=== PATIENT | female | born 1995 | race Caucasian/White ===

== ENCOUNTER 2023-09-01 13:51 | Day surgery (SDC) | payer OTHER, SELFPAY ==
[2023-09-01] VITALS (22 sets, daily range): BP systolic 103–129; BP diastolic 62–88; PULSE 55–68; RESP 18–26; TEMP 37–37.3; O2SAT 97–100
--- NOTE | 2023-09-01 14:25 | CRLHL7_ITS ---
For Patients: As a result of the Century Cures Act, medical imaging exams and procedure reports are released immediately into your electronic medical record. You may view this report before your referring provider. If you have questions, please contact your health care provider. INDICATION: Chest pain COMPARISON: None TECHNIQUE: Single-view study FINDINGS: TUBES AND LINES: None. HEART AND MEDIASTINUM: The heart size is normal. The mediastinal contour appears normal for patient age. LUNGS AND PLEURAL SPACES: The lungs appear normal.The pleural spaces are unremarkable. OSSEOUS STRUCTURES: Significant appearing scoliosis. The scoliosis is not fully or formally studied on this examination. IMPRESSION: No evidence of active pulmonary disease. Significant appearing scoliosis incidentally noted. Dictated by Josiah Ny MD @ 09/01/2023 3:42:52 PM (Electronically Signed)
--- NOTE | 2023-09-01 14:25 | CRLHL7_ITS ---
For Patients: As a result of the Century Cures Act, medical imaging exams and procedure reports are released immediately into your electronic medical record. You may view this report before your referring provider. If you have questions, please contact your health care provider. INDICATION: Right upper quadrant abdomen pain TECHNIQUE: Ultrasound abdomen limited. Sonographic images of the right upper quadrant were obtained using gambino-scale and color Doppler images. COMPARISON: None FINDINGS: Liver: Normal in size and echotexture. No masses. No intrahepatic biliary dilatation. Gallbladder: Distended with gallbladder sludge and multiple gallstones. Mild gallbladder wall thickening. Stone noted at the gallbladder neck. Trace pericholecystic fluid. Common bile duct: 5 mm. Pancreas: Partially obscured by bowel gas without discrete lesion. Right kidney: Normal in size. Normal echotexture and cortex. No masses, stones, or hydronephrosis. Vasculature: Proximal abdominal aorta and IVC are normal. IMPRESSION: 1. Cholelithiasis, gallbladder sludge, gallbladder wall thickening, trace pericholecystic fluid and stone noted at the gallbladder neck. Appearance is suspicious for cholecystitis. 2. Normal diameter common duct. Dictated by Torsten Downs MD @ 09/01/2023 3:22:46 PM (Electronically Signed)
[2023-09-01] MEDS: MAG HYDROX/ALUMINUM HYD/SIMETH 30 ML ORAL.SUSP PO (14:37)
[2023-09-01 15:19] LABS: Chloride* 105 mmol/L (96-114)
[2023-09-01 15:20] LABS: Albumin* 4.2 g/dL (3.3-5.0); Sodium* 131 mmol/L (135-149)
[2023-09-01 15:21] LABS: D Dimer Quantitative* 0.44 ug/ml (0.00-0.50); Potassium* 3.8 mmol/L (3.6-5.1)
[2023-09-01 15:23] LABS: Alkaline Phosphatase* 66 U/L (40-150); Amylase* 111 U/L (18-89); Anion Gap 0 mEq/L (7-15); Aspartate Amino Transferase* 21 U/L (12-35); Bilirubin Total* 0.3 mg/dL (0.1-1.5); Blood Urea Nitrogen* 13 mg/dL (5-24); Carbon Dioxide* 26 mmol/L (20-32); Creatinine* 0.5 mg/dL (0.5-1.5); Estimated Glomerular Filt Rate 133 ml/min
[2023-09-01 15:24] LABS: Alanine Aminotransferase* 58 U/L (4-35); Calcium* 8.8 mg/dL (8.4-10.6); Glucose* 110 mg/dL (60-115)
[2023-09-01] MEDS: KETOROLAC 30 MG/ML inj IVP (15:38)
[2023-09-01] MEDS: 0.9 % SODIUM CHLORIDE 1000 ml 1,000 ML IV (15:38)
[2023-09-01 15:48] LABS: Troponin I* < 0.01 ng/mL (0.01-0.04)
--- NOTE | 2023-09-01 15:48 | ED.CHESTPAIN ---
HPI - Chest Pain General Chief Complaint: Chest Pain <Pete Fletcher MD - Last Filed: 09/01/23 15:50> Stated Complaint: Chest pain, short of breath <Pete Fletcher MD - Last Filed: 09/01/23 15:50> Time Seen by Provider: 09/01/23 14:14 <Pete Fletcher MD - Last Filed: 09/01/23 15:50> History of Present Illness HPI narrative: Patient is a 28-year-old woman who is in overall good health who presents with 8-10 hours of epigastric and right upper quadrant pain. She states that she has had similar episodes in the past but this was more severe. She has profound nausea as well as extreme pain that radiates through to her back. Pain is dull. She has had no fevers no chills no night sweats no dysuria no cough no shortness of breath. Her last meal was approximately 4 hours ago. <Pete Fletcher MD - Last Filed: 09/01/23 15:50> Related Data Home Medications: Home Medications Medication Instructions Recorded Confirmed escitalopram oxalate 10 mg PO .QD 09/01/23 09/02/23 hydroxizine 25 mg PO TID PRN 09/01/23 09/02/23 Previous Rx's Medication Instructions Recorded hydrocodone 5 mg-acetaminophen 325 1 - 2 tab PO Q6H PRN Pain #20 tabs 09/02/23 mg tablet hydrocodone 5 mg-acetaminophen 325 1 - 2 tab PO Q6H PRN Pain #25 tabs 09/02/23 mg tablet <Pete Fletcher MD - Last Filed: 09/01/23 15:50> Allergies/Adverse Reactions: Allergies Allergy/AdvReac Type Severity Reaction Status Date / Time No Known Drug Allergies Allergy Verified 09/01/23 13:58 <Pete Fletcher MD - Last Filed: 09/01/23 15:50> Review of Systems Status of ROS Reports: 10 or more systems reviewed and unremarkable except as noted in History and below <Pete Fletcher MD - Last Filed: 09/01/23 15:50> [facility] Medical History: Medical History (Updated 09/01/23 @ 17:48 by Layla Garcia MD) Scoliosis ?M41.9 - Scoliosis, unspecified (ICD-10) Depression ?F32.A - Depression, unspecified (ICD-10) Anxiety ?F41.9 - Anxiety disorder, unspecified (ICD-10) <Pete Fletcher MD - Last Filed: 09/01/23 15:50> Surgical History: Surgical History (Updated 09/02/23 @ 21:51 by Layla Garcia MD) S/P laparoscopic cholecystectomy ?Z90.49 - Acquired absence of other specified parts of digestive tract (ICD-10) S/P tonsillectomy ?Z90.89 - Acquired absence of other organs (ICD-10) <Pete Fletcher MD - Last Filed: 09/01/23 15:50> Social History: Social History (Updated 09/01/23 @ 17:48 by Layla Garcia MD) Narrative: She does not drink alcohol. She does smoke medical marijuana. She vapes occasionally. She is not currently working. She lives in [place] with her daughter. Smoking Status: Current some day smoker Do you use any of these nicotine containing products: Vaping Products How often do you have a drink containing alcohol: never How often do you have six or more drinks on one occasion: Never AUDIT-C Alcohol total score: 0 Non-prescribed substance use: marijuana (any form) Non-prescribed substance use details: medical marijuana smokes for 2 years service: No <Pete Fletcher MD - Last Filed: 09/01/23 15:50> Exam Narrative Exam Narrative: EXAM GENERAL: Patient is writhing in pain holding her abdomen. EYES: No scleral icterus. LYMPH: No supraclavicular or cervical lymphadenopathy. SKIN: Visible skin seen during exam normal or with benign process only. EXT: No dependent lower extremity pedal edema. HEART: Regular rate and rhythm with no murmurs, rubs, or gallops. LUNGS: Clear to auscultation bilaterally with no crackles or wheezes. ABD: Tender to palpation the right upper quadrant hypoactive bowel sounds abdomen is scaphoid. PSYCH: Good eye contact, speech is not pressured. <Pete Fletcher MD - Last Filed: 09/01/23 15:50> Const Vital Signs, click to edit/add: Vital Signs - 24 hr 09/02/23 10:30 09/02/23 10:35 09/02/23 10:40 Temperature 97.9 F Pulse Rate 86 79 62 Pulse Rate [Right Pulse Oximeter] Respiratory Rate 18 16 18 Blood Pressure 117/79 121/77 116/76 Blood Pressure [Left Arm] Pulse Oximetry 99 99 99 Oxygen Delivery Method Room Air Room Air Room Air 09/02/23 10:45 09/02/23 10:50 09/02/23 10:55 Temperature 97.7 F Pulse Rate 61 61 58 L Pulse Rate [Right Pulse Oximeter] Respiratory Rate 16 18 14 Blood Pressure 115/78 112/77 114/79 Blood Pressure [Left Arm] Pulse Oximetry 98 98 98 Oxygen Delivery Method Room Air Room Air Room Air 09/02/23 11:00 09/02/23 11:05 09/02/23 11:15 Temperature 97.7 F 97.8 F Pulse Rate 58 L 59 L 58 L Pulse Rate [Right Pulse Oximeter] Respiratory Rate 16 14 14 Blood Pressure 119/77 118/79 114/78 Blood Pressure [Left Arm] Pulse Oximetry 98 98 98 Oxygen Delivery Method Room Air Room Air Room Air 09/02/23 11:30 09/02/23 11:45 09/02/23 12:00 Temperature Pulse Rate 64 62 68 Pulse Rate [Right Pulse Oximeter] Respiratory Rate 16 16 16 Blood Pressure 119/82 114/78 112/66 Blood Pressure [Left Arm] Pulse Oximetry 97 97 98 Oxygen Delivery Method Room Air Room Air Room Air 09/02/23 12:15 09/02/23 12:45 09/02/23 13:15 Temperature 99 F Pulse Rate 66 Pulse Rate [Right Pulse Oximeter] 80 78 Respiratory Rate 16 18 18 Blood Pressure 109/74 Blood Pressure [Left Arm] 103/67 111/79 Pulse Oximetry 97 100 Oxygen Delivery Method Room Air Room Air 09/02/23 14:15 09/02/23 15:15 09/02/23 16:15 Temperature 98.3 F Pulse Rate Pulse Rate [Right Pulse Oximeter] 84 78 82 Respiratory Rate 18 18 18 Blood Pressure Blood Pressure [Left Arm] 112/72 110/76 118/72 Pulse Oximetry Oxygen Delivery Method 09/02/23 17:15 09/02/23 19:16 09/02/23 19:16 Temperature 97.9 F 97.9 F Pulse Rate Pulse Rate [Right Pulse Oximeter] 76 72 72 Respiratory Rate 18 16 16 Blood Pressure Blood Pressure [Left Arm] 113/76 114/76 114/76 Pulse Oximetry 98 98 Oxygen Delivery Method Room Air Room Air 09/02/23 23:50 09/03/23 00:00 09/03/23 04:06 Temperature 98 F 97.8 F Pulse Rate Pulse Rate [Right Pulse Oximeter] 76 76 63 Respiratory Rate 16 16 16 Blood Pressure Blood Pressure [Left Arm] 117/72 102/63 Pulse Oximetry 97 98 Oxygen Delivery Method Room Air Room Air 09/03/23 04:57 Temperature Pulse Rate Pulse Rate [Right Pulse Oximeter] 63 Respiratory Rate 16 Blood Pressure Blood Pressure [Left Arm] Pulse Oximetry Oxygen Delivery Method <Pete Fletcher MD - Last Filed: 09/01/23 15:50> Vital Signs - 24 hr 09/02/23 10:30 09/02/23 10:35 09/02/23 10:40 Temperature 97.9 F Pulse Rate 86 79 62 Pulse Rate [Right Pulse Oximeter] Respiratory Rate 18 16 18 Blood Pressure 117/79 121/77 116/76 Blood Pressure [Left Arm] Pulse Oximetry 99 99 99 Oxygen Delivery Method Room Air Room Air Room Air 09/02/23 10:45 09/02/23 10:50 09/02/23 10:55 Temperature 97.7 F Pulse Rate 61 61 58 L Pulse Rate [Right Pulse Oximeter] Respiratory Rate 16 18 14 Blood Pressure 115/78 112/77 114/79 Blood Pressure [Left Arm] Pulse Oximetry 98 98 98 Oxygen Delivery Method Room Air Room Air Room Air 09/02/23 11:00 09/02/23 11:05 09/02/23 11:15 Temperature 97.7 F 97.8 F Pulse Rate 58 L 59 L 58 L Pulse Rate [Right Pulse Oximeter] Respiratory Rate 16 14 14 Blood Pressure 119/77 118/79 114/78 Blood Pressure [Left Arm] Pulse Oximetry 98 98 98 Oxygen Delivery Method Room Air Room Air Room Air 09/02/23 11:30 09/02/23 11:45 09/02/23 12:00 Temperature Pulse Rate 64 62 68 Pulse Rate [Right Pulse Oximeter] Respiratory Rate 16 16 16 Blood Pressure 119/82 114/78 112/66 Blood Pressure [Left Arm] Pulse Oximetry 97 97 98 Oxygen Delivery Method Room Air Room Air Room Air 09/02/23 12:15 09/02/23 12:45 09/02/23 13:15 Temperature 99 F Pulse Rate 66 Pulse Rate [Right Pulse Oximeter] 80 78 Respiratory Rate 16 18 18 Blood Pressure 109/74 Blood Pressure [Left Arm] 103/67 111/79 Pulse Oximetry 97 100 Oxygen Delivery Method Room Air Room Air 09/02/23 14:15 09/02/23 15:15 09/02/23 16:15 Temperature 98.3 F Pulse Rate Pulse Rate [Right Pulse Oximeter] 84 78 82 Respiratory Rate 18 18 18 Blood Pressure Blood Pressure [Left Arm] 112/72 110/76 118/72 Pulse Oximetry Oxygen Delivery Method 09/02/23 17:15 09/02/23 19:16 09/02/23 19:16 Temperature 97.9 F 97.9 F Pulse Rate Pulse Rate [Right Pulse Oximeter] 76 72 72 Respiratory Rate 18 16 16 Blood Pressure Blood Pressure [Left Arm] 113/76 114/76 114/76 Pulse Oximetry 98 98 Oxygen Delivery Method Room Air Room Air 09/02/23 23:50 09/03/23 00:00 09/03/23 04:06 Temperature 98 F 97.8 F Pulse Rate Pulse Rate [Right Pulse Oximeter] 76 76 63 Respiratory Rate 16 16 16 Blood Pressure Blood Pressure [Left Arm] 117/72 102/63 Pulse Oximetry 97 98 Oxygen Delivery Method Room Air Room Air 09/03/23 04:57 Temperature Pulse Rate Pulse Rate [Right Pulse Oximeter] 63 Respiratory Rate 16 Blood Pressure Blood Pressure [Left Arm] Pulse Oximetry Oxygen Delivery Method <Jonathan Hooper DO - Last Filed: 09/03/23 08:04> Course Course ED Course: Patient seen examined. Suspect she has cholecystitis. Ultrasound the gallbladder is significant for acute cholecystitis. Laboratory studies are pending. Preliminary contact has been made with the General surgery. <Pete Fletcher MD - Last Filed: 09/01/23 15:50> Vital Signs Vital signs: Initial Vital Signs Temperature 98.6 F 09/01/23 13:54 Temperature Source Temporal Artery Scan 09/01/23 13:54 Pulse Rate 65 09/01/23 13:54 Respiratory Rate 18 09/01/23 13:54 Blood Pressure 129/74 09/01/23 13:54 Blood Pressure Mean 92 09/01/23 13:54 Blood Pressure Position Sitting 09/01/23 13:54 Pulse Oximetry 99 09/01/23 13:54 Oxygen Delivery Method Room Air 09/01/23 13:54 Vital Signs Temperature 98.6 F 09/01/23 13:54 Pulse Rate 65 09/01/23 13:54 Respiratory Rate 18 09/01/23 13:54 Blood Pressure 129/74 09/01/23 13:54 Pulse Oximetry 99 09/01/23 13:54 Oxygen Delivery Method Room Air 09/01/23 13:54 Temperature 97.8 F 09/03/23 04:06 Pulse Rate 63 09/03/23 04:57 Respiratory Rate 16 09/03/23 04:57 Blood Pressure 102/63 09/03/23 04:06 Pulse Oximetry 98 09/03/23 04:06 Oxygen Delivery Method Room Air 09/03/23 04:06 <Pete Fletcher MD - Last Filed: 09/01/23 15:50> Initial Vital Signs Temperature 98.6 F 09/01/23 13:54 Temperature Source Temporal Artery Scan 09/01/23 13:54 Pulse Rate 65 09/01/23 13:54 Respiratory Rate 18 09/01/23 13:54 Blood Pressure 129/74 09/01/23 13:54 Blood Pressure Mean 92 09/01/23 13:54 Blood Pressure Position Sitting 09/01/23 13:54 Pulse Oximetry 99 09/01/23 13:54 Oxygen Delivery Method Room Air 09/01/23 13:54 Vital Signs Temperature 98.6 F 09/01/23 13:54 Pulse Rate 65 09/01/23 13:54 Respiratory Rate 18 09/01/23 13:54 Blood Pressure 129/74 09/01/23 13:54 Pulse Oximetry 99 09/01/23 13:54 Oxygen Delivery Method Room Air 09/01/23 13:54 Temperature 97.8 F 09/03/23 04:06 Pulse Rate 63 09/03/23 04:57 Respiratory Rate 16 09/03/23 04:57 Blood Pressure 102/63 09/03/23 04:06 Pulse Oximetry 98 09/03/23 04:06 Oxygen Delivery Method Room Air 09/03/23 04:06 <Jonathan Hopoer DO - Last Filed: 09/03/23 08:04> Medications Administered Medications: Generic Name Dose Route Start Last Admin Trade Name Brandon PRN Reason Stop Dose Admin Hydrocodone Bitart/Acetaminophen 1 - 2 tab 09/02/23 10:20 09/03/23 04:39 Hydrocodone-Acetamin 5-325 Mg 1 Tab PO 1 tab Q4H PRN Administration Pain Hydromorphone HCl 0.5 mg 09/02/23 07:50 09/02/23 10:35 Hydromorphone 0.5 Mg/0.5 Ml Inj IVP 0.5 mg Q10M PRN Administration Pain Sodium Chloride 1,000 mls @ 100 mls/hr 09/01/23 19:28 09/02/23 03:01 0.9 % Sodium Chloride 1000 Ml IV 100 mls/hr .Q10H CATHY Administration Piperacillin Sod/Tazobactam 100 mls @ 100 mls/hr 09/02/23 22:00 09/03/23 05:21 Sod 3.375 gm/ Sodium Chloride IVPB Infused Q6H CATHY Infusion Menthol 0 applic 09/02/23 16:43 09/03/23 04:41 Menthol 57 Gm Gel TOPICAL 1 applic TID PRN Administration Simethicone 160 mg 09/02/23 16:39 09/03/23 04:37 Simethicone 80 Mg Tab.Chew PO 160 mg Q4H PRN Administration Discontinued Medications Generic Name Dose Route Start Last Admin Trade Name Brandon PRN Reason Stop Dose Admin Acetaminophen 650 mg 09/02/23 10:20 09/02/23 13:05 Acetaminophen 325 Mg Tablet PO 09/02/23 10:21 650 mg ONCE ONE Administration Bupivacaine HCl 9 ml 09/02/23 09:10 09/02/23 09:10 Bupivacaine 0.25% 30 Ml INJECTION 09/02/23 09:11 9 ml ONCE ONE Administration Cyclobenzaprine HCl 10 mg 09/01/23 19:28 09/01/23 20:19 Cyclobenzaprine Hcl 10 Mg Tablet PO 09/01/23 19:29 Not Given BEDTIME ONE Hydromorphone HCl 0.1 - 0.5 mg 09/01/23 19:28 09/02/23 12:57 Hydromorphone 0.5 Mg/0.5 Ml Inj IVP 0.3 mg Q2H PRN Administration Pain Sodium Chloride 1,000 mls @ 1,000 mls/hr 09/01/23 15:18 09/01/23 16:39 0.9 % Sodium Chloride 1000 Ml IV 09/01/23 16:17 Infused .Q1H CATHY Infusion Piperacillin Sod/Tazobactam 100 mls @ 100 mls/hr 09/01/23 19:28 09/02/23 20:06 Sod 3.375 gm/ Sodium Chloride IVPB Infused Q6H CATHY Infusion Lactated Ringer's 1,000 mls @ 100 mls/hr 09/02/23 07:40 09/02/23 20:06 Lactated Ringers 1000 Ml IV Infused .Q10H CATHY Infusion Ketorolac Tromethamine 30 mg 09/01/23 15:18 09/01/23 15:38 Ketorolac 30 Mg/Ml Inj IVP 09/01/23 15:19 30 mg ONCE ONE Administration Ketorolac Tromethamine 15 mg 09/01/23 19:14 09/01/23 19:24 Ketorolac 15 Mg/Ml Inj IVP 09/01/23 19:15 15 mg ONCE ONE Administration Lidocaine/Aluminum/Magnesium/Simeth 30 ml 09/01/23 15:46 09/01/23 14:37 Mag Hydrox/Aluminum Hyd/Simeth 30 Ml Oral.Susp PO 09/01/23 15:47 30 ml ONCE ONE Administration Morphine Sulfate 4 mg 09/01/23 18:19 09/01/23 18:32 Morphine 4 Mg/Ml Inj IVP 09/01/23 18:20 4 mg ONCE ONE Administration Morphine Sulfate 2 mg 09/01/23 19:14 09/01/23 19:24 Morphine 2 Mg/Ml Inj IVP 09/01/23 19:15 2 mg ONCE ONE Administration Morphine Sulfate 4 mg 09/02/23 01:28 09/02/23 01:37 Morphine 4 Mg/Ml Inj IVP 09/02/23 01:29 4 mg ONCE ONE Administration Morphine Sulfate 4 mg 09/02/23 01:28 09/02/23 07:04 Morphine 2 Mg/Ml Inj IVP 4 mg Q2H PRN Administration Piperacillin Sod/Tazobactam Sod 3.375 gm 09/02/23 07:42 09/02/23 08:55 Piperacillin/Tazobactam 3.375 Gm Inj IVPB 09/02/23 07:43 3.375 gm ONCE ONE Administration <Pete Fletcher MD - Last Filed: 09/01/23 15:50> Generic Name Dose Route Start Last Admin Trade Name Brandon PRN Reason Stop Dose Admin Hydrocodone Bitart/Acetaminophen 1 - 2 tab 09/02/23 10:20 09/03/23 04:39 Hydrocodone-Acetamin 5-325 Mg 1 Tab PO 1 tab Q4H PRN Administration Pain Hydromorphone HCl 0.5 mg 09/02/23 07:50 09/02/23 10:35 Hydromorphone 0.5 Mg/0.5 Ml Inj IVP 0.5 mg Q10M PRN Administration Pain Sodium Chloride 1,000 mls @ 100 mls/hr 09/01/23 19:28 09/02/23 03:01 0.9 % Sodium Chloride 1000 Ml IV 100 mls/hr .Q10H CATHY Administration Piperacillin Sod/Tazobactam 100 mls @ 100 mls/hr 09/02/23 22:00 09/03/23 05:21 Sod 3.375 gm/ Sodium Chloride IVPB Infused Q6H CATHY Infusion Menthol 0 applic 09/02/23 16:43 09/03/23 04:41 Menthol 57 Gm Gel TOPICAL 1 applic TID PRN Administration Simethicone 160 mg 09/02/23 16:39 09/03/23 04:37 Simethicone 80 Mg Tab.Chew PO 160 mg Q4H PRN Administration Discontinued Medications Generic Name Dose Route Start Last Admin Trade Name Brandon PRN Reason Stop Dose Admin Acetaminophen 650 mg 09/02/23 10:20 09/02/23 13:05 Acetaminophen 325 Mg Tablet PO 09/02/23 10:21 650 mg ONCE ONE Administration Bupivacaine HCl 9 ml 09/02/23 09:10 09/02/23 09:10 Bupivacaine 0.25% 30 Ml INJECTION 09/02/23 09:11 9 ml ONCE ONE Administration Cyclobenzaprine HCl 10 mg 09/01/23 19:28 09/01/23 20:19 Cyclobenzaprine Hcl 10 Mg Tablet PO 09/01/23 19:29 Not Given BEDTIME ONE Hydromorphone HCl 0.1 - 0.5 mg 09/01/23 19:28 09/02/23 12:57 Hydromorphone 0.5 Mg/0.5 Ml Inj IVP 0.3 mg Q2H PRN Administration Pain Sodium Chloride 1,000 mls @ 1,000 mls/hr 09/01/23 15:18 09/01/23 16:39 0.9 % Sodium Chloride 1000 Ml IV 09/01/23 16:17 Infused .Q1H CATHY Infusion Piperacillin Sod/Tazobactam 100 mls @ 100 mls/hr 09/01/23 19:28 09/02/23 20:06 Sod 3.375 gm/ Sodium Chloride IVPB Infused Q6H CATHY Infusion Lactated Ringer's 1,000 mls @ 100 mls/hr 09/02/23 07:40 09/02/23 20:06 Lactated Ringers 1000 Ml IV Infused .Q10H CATHY Infusion Ketorolac Tromethamine 30 mg 09/01/23 15:18 09/01/23 15:38 Ketorolac 30 Mg/Ml Inj IVP 09/01/23 15:19 30 mg ONCE ONE Administration Ketorolac Tromethamine 15 mg 09/01/23 19:14 09/01/23 19:24 Ketorolac 15 Mg/Ml Inj IVP 09/01/23 19:15 15 mg ONCE ONE Administration Lidocaine/Aluminum/Magnesium/Simeth 30 ml 09/01/23 15:46 09/01/23 14:37 Mag Hydrox/Aluminum Hyd/Simeth 30 Ml Oral.Susp PO 09/01/23 15:47 30 ml ONCE ONE Administration Morphine Sulfate 4 mg 09/01/23 18:19 09/01/23 18:32 Morphine 4 Mg/Ml Inj IVP 09/01/23 18:20 4 mg ONCE ONE Administration Morphine Sulfate 2 mg 09/01/23 19:14 09/01/23 19:24 Morphine 2 Mg/Ml Inj IVP 09/01/23 19:15 2 mg ONCE ONE Administration Morphine Sulfate 4 mg 09/02/23 01:28 09/02/23 01:37 Morphine 4 Mg/Ml Inj IVP 09/02/23 01:29 4 mg ONCE ONE Administration Morphine Sulfate 4 mg 09/02/23 01:28 09/02/23 07:04 Morphine 2 Mg/Ml Inj IVP 4 mg Q2H PRN Administration Piperacillin Sod/Tazobactam Sod 3.375 gm 09/02/23 07:42 09/02/23 08:55 Piperacillin/Tazobactam 3.375 Gm Inj IVPB 09/02/23 07:43 3.375 gm ONCE ONE Administration <Jonathan Hooper DO - Last Filed: 09/03/23 08:04> MDM - Chest Pain MDM Narrative Medical decision making narrative: Patient was signed out to me pending rest of her lab work. White blood cell count came back at 12.83. I spoke to Dr. Garcia who accepted her for admission. Plan is to cholecystectomy in the morning. <Jonathan Hooper, - Last Filed: 09/03/23 08:04> Lab Data Labs: Lab Results 09/01/23 09/01/23 09/02/23 Range/Units 14:45 15:50 07:12 WBC 12.83 H 14.07 H (4.50-11.00) K/uL RBC 4.19 4.74 (4.00-5.20) m/uL Hgb 13.1 13.9 (12.0-16.0) gm/dL Hct 39.3 42.6 (33.0-51.0) % MCV 94 90 (80-100) fL MCH 31 29 (26-34) pg MCHC 33 33 (32-36) gm/dL RDW Coeff of [place] 12.9 12.7 (11.5-15.5) % Plt Count 315 306 (140-440) K/uL Neut % (Auto) 75.2 H 81.3 H (42.0-72.0) % Lymph % (Auto) 17.7 L 11.9 L (20-44) % [place] % (Auto) 5.8 6.3 (0.0-11.0) % Eos % (Auto) 1.0 0.3 (0.0-7.0) % Baso % (Auto) 0.2 0.1 (0.0-3.0) % Neut # (Auto) 9.60 H 11.40 H (1.7-7.0) K/uL Lymph # (Auto) 2.30 1.70 (0.90-2.90) K/uL [place] # (Auto) 0.70 0.90 (0.00-0.90) K/UL Eos # (Auto) 0.10 0.00 (0.00-0.50) K/uL Baso # (Auto) 0.00 0.00 (0.00-0.30) K/uL Abs Immat Gran (auto) 0.00 0.00 (0.00-0.30) K/uL Imm/Tot Granulo (auto) 0.1 0.1 % D-Dimer Quant (PE/DVT) 0.44 (0.00-0.50) ug/ml Sodium 131 L 130 L (135-149) mmol/L Potassium 3.8 4.2 (3.6-5.1) mmol/L Chloride 105 106 (96-114) mmol/L Carbon Dioxide 26 20 (20-32) mmol/L Anion Gap 0 L 4 L (7-15) mEq/L BUN 13 8 (5-24) mg/dL Creatinine 0.5 0.5 (0.5-1.5) mg/dL Estimated Creat Clear Estimated GFR 133 133 ml/min Glucose 110 122 H (60-115) mg/dL Calcium 8.8 8.7 (8.4-10.6) mg/dL Total Bilirubin 0.3 1.7 H (0.1-1.5) mg/dL Direct Bilirubin 0.3 (0.0-0.5) mg/dL AST 21 152 H (12-35) U/L ALT 58 H 266 H (4-35) U/L Alkaline Phosphatase 66 123 (40-150) U/L Troponin I < 0.01 L (0.01-0.04) ng/mL Total Protein 7.0 6.9 (6.0-8.3) g/dL Albumin 4.2 4.0 (3.3-5.0) g/dL Amylase 111 H (18-89) U/L Lipase 46 (23-300) U/L Urine Color Yellow (Yellow) Urine Appearance Clear (Clear) Urine pH 8.5 (5.0-8.5) Ur Specific [place] 1.020 (1.000-1.030) Urine Protein Negative (Negative) Urine Glucose (UA) Negative (Negative) Urine Ketones Negative (Negative) Urine Blood Negative (Negative) Urine Nitrite Positive A (Negative) Urine Bilirubin Negative (Negative) Urine Urobilinogen 0.2 (0.2-1.0) Ur Leukocyte Esterase Trace A (Negative) Urine RBC 0-2 (0-2) Urine WBC 0-2 (0-5) Ur Squamous Epith Cells Few (None-Few) Urine Bacteria Few A (None) Urine HCG, Qual (Negative) 09/02/23 09/03/23 Range/Units 08:00 07:05 WBC 8.28 (4.50-11.00) K/uL RBC 3.85 L (4.00-5.20) m/uL Hgb 11.4 L (12.0-16.0) gm/dL Hct 35.4 (33.0-51.0) % MCV 92 (80-100) fL MCH 30 (26-34) pg MCHC 32 (32-36) gm/dL RDW Coeff of [place] 13.0 (11.5-15.5) % Plt Count 269 (140-440) K/uL Neut % (Auto) 55.6 (42.0-72.0) % Lymph % (Auto) 33.8 (20-44) % [place]pie % (Auto) 9.1 (0.0-11.0) % Eos % (Auto) 1.0 (0.0-7.0) % Baso % (Auto) 0.4 (0.0-3.0) % Neut # (Auto) 4.61 (1.7-7.0) K/uL Lymph # (Auto) 2.80 (0.90-2.90) K/uL [place] # (Auto) 0.80 (0.00-0.90) K/UL Eos # (Auto) 0.08 (0.00-0.50) K/uL Baso # (Auto) 0.03 (0.00-0.30) K/uL Abs Immat Gran (auto) 0.01 (0.00-0.30) K/uL Imm/Tot Granulo (auto) 0.1 % D-Dimer Quant (PE/DVT) (0.00-0.50) ug/ml Sodium 137 (135-149) mmol/L Potassium 4.4 (3.6-5.1) mmol/L Chloride 106 (96-114) mmol/L Carbon Dioxide 25 (20-32) mmol/L Anion Gap 6 L (7-15) mEq/L BUN 6 (5-24) mg/dL Creatinine 0.6 (0.5-1.5) mg/dL Estimated Creat Clear 111.70 Estimated GFR 127 ml/min Glucose 106 (60-115) mg/dL Calcium 8.3 L (8.4-10.6) mg/dL Total Bilirubin 1.3 (0.1-1.5) mg/dL Direct Bilirubin 0.2 (0.0-0.5) mg/dL AST 39 H (12-35) U/L ALT 159 H (4-35) U/L Alkaline Phosphatase 93 (40-150) U/L Troponin I (0.01-0.04) ng/mL Total Protein 6.0 (6.0-8.3) g/dL Albumin 3.2 L (3.3-5.0) g/dL Amylase (18-89) U/L Lipase (23-300) U/L Urine Color (Yellow) Urine Appearance (Clear) Urine pH (5.0-8.5) Ur Specific [place] (1.000-1.030) Urine Protein (Negative) Urine Glucose (UA) (Negative) Urine Ketones (Negative) Urine Blood (Negative) Urine Nitrite (Negative) Urine Bilirubin (Negative) Urine Urobilinogen (0.2-1.0) Ur Leukocyte Esterase (Negative) Urine RBC (0-2) Urine WBC (0-5) Ur Squamous Epith Cells (None-Few) Urine Bacteria (None) Urine HCG, Qual Negative (Negative) <Pete Fletcher MD - Last Filed: 09/01/23 15:50> Lab Results 09/01/23 09/01/23 09/02/23 Range/Units 14:45 15:50 07:12 WBC 12.83 H 14.07 H (4.50-11.00) K/uL RBC 4.19 4.74 (4.00-5.20) m/uL Hgb 13.1 13.9 (12.0-16.0) gm/dL Hct 39.3 42.6 (33.0-51.0) % MCV 94 90 (80-100) fL MCH 31 29 (26-34) pg MCHC 33 33 (32-36) gm/dL RDW Coeff of [place] 12.9 12.7 (11.5-15.5) % Plt Count 315 306 (140-440) K/uL Neut % (Auto) 75.2 H 81.3 H (42.0-72.0) % Lymph % (Auto) 17.7 L 11.9 L (20-44) % [place]pie % (Auto) 5.8 6.3 (0.0-11.0) % Eos % (Auto) 1.0 0.3 (0.0-7.0) % Baso % (Auto) 0.2 0.1 (0.0-3.0) % Neut # (Auto) 9.60 H 11.40 H (1.7-7.0) K/uL Lymph # (Auto) 2.30 1.70 (0.90-2.90) K/uL [place] # (Auto) 0.70 0.90 (0.00-0.90) K/UL Eos # (Auto) 0.10 0.00 (0.00-0.50) K/uL Baso # (Auto) 0.00 0.00 (0.00-0.30) K/uL Abs Immat Gran (auto) 0.00 0.00 (0.00-0.30) K/uL Imm/Tot Granulo (auto) 0.1 0.1 % D-Dimer Quant (PE/DVT) 0.44 (0.00-0.50) ug/ml Sodium 131 L 130 L (135-149) mmol/L Potassium 3.8 4.2 (3.6-5.1) mmol/L Chloride 105 106 (96-114) mmol/L Carbon Dioxide 26 20 (20-32) mmol/L Anion Gap 0 L 4 L (7-15) mEq/L BUN 13 8 (5-24) mg/dL Creatinine 0.5 0.5 (0.5-1.5) mg/dL Estimated Creat Clear Estimated GFR 133 133 ml/min Glucose 110 122 H (60-115) mg/dL Calcium 8.8 8.7 (8.4-10.6) mg/dL Total Bilirubin 0.3 1.7 H (0.1-1.5) mg/dL Direct Bilirubin 0.3 (0.0-0.5) mg/dL AST 21 152 H (12-35) U/L ALT 58 H 266 H (4-35) U/L Alkaline Phosphatase 66 123 (40-150) U/L Troponin I < 0.01 L (0.01-0.04) ng/mL Total Protein 7.0 6.9 (6.0-8.3) g/dL Albumin 4.2 4.0 (3.3-5.0) g/dL Amylase 111 H (18-89) U/L Lipase 46 (23-300) U/L Urine Color Yellow (Yellow) Urine Appearance Clear (Clear) Urine pH 8.5 (5.0-8.5) Ur Specific [place] 1.020 (1.000-1.030) Urine Protein Negative (Negative) Urine Glucose (UA) Negative (Negative) Urine Ketones Negative (Negative) Urine Blood Negative (Negative) Urine Nitrite Positive A (Negative) Urine Bilirubin Negative (Negative) Urine Urobilinogen 0.2 (0.2-1.0) Ur Leukocyte Esterase Trace A (Negative) Urine RBC 0-2 (0-2) Urine WBC 0-2 (0-5) Ur Squamous Epith Cells Few (None-Few) Urine Bacteria Few A (None) Urine HCG, Qual (Negative) 09/02/23 09/03/23 Range/Units 08:00 07:05 WBC 8.28 (4.50-11.00) K/uL RBC 3.85 L (4.00-5.20) m/uL Hgb 11.4 L (12.0-16.0) gm/dL Hct 35.4 (33.0-51.0) % MCV 92 (80-100) fL MCH 30 (26-34) pg MCHC 32 (32-36) gm/dL RDW Coeff of [place] 13.0 (11.5-15.5) % Plt Count 269 (140-440) K/uL Neut % (Auto) 55.6 (42.0-72.0) % Lymph % (Auto) 33.8 (20-44) % [place] % (Auto) 9.1 (0.0-11.0) % Eos % (Auto) 1.0 (0.0-7.0) % Baso % (Auto) 0.4 (0.0-3.0) % Neut # (Auto) 4.61 (1.7-7.0) K/uL Lymph # (Auto) 2.80 (0.90-2.90) K/uL [place] # (Auto) 0.80 (0.00-0.90) K/UL Eos # (Auto) 0.08 (0.00-0.50) K/uL Baso # (Auto) 0.03 (0.00-0.30) K/uL Abs Immat Gran (auto) 0.01 (0.00-0.30) K/uL Imm/Tot Granulo (auto) 0.1 % D-Dimer Quant (PE/DVT) (0.00-0.50) ug/ml Sodium 137 (135-149) mmol/L Potassium 4.4 (3.6-5.1) mmol/L Chloride 106 (96-114) mmol/L Carbon Dioxide 25 (20-32) mmol/L Anion Gap 6 L (7-15) mEq/L BUN 6 (5-24) mg/dL Creatinine 0.6 (0.5-1.5) mg/dL Estimated Creat Clear 111.70 Estimated GFR 127 ml/min Glucose 106 (60-115) mg/dL Calcium 8.3 L (8.4-10.6) mg/dL Total Bilirubin 1.3 (0.1-1.5) mg/dL Direct Bilirubin 0.2 (0.0-0.5) mg/dL AST 39 H (12-35) U/L ALT 159 H (4-35) U/L Alkaline Phosphatase 93 (40-150) U/L Troponin I (0.01-0.04) ng/mL Total Protein 6.0 (6.0-8.3) g/dL Albumin 3.2 L (3.3-5.0) g/dL Amylase (18-89) U/L Lipase (23-300) U/L Urine Color (Yellow) Urine Appearance (Clear) Urine pH (5.0-8.5) Ur Specific [place] (1.000-1.030) Urine Protein (Negative) Urine Glucose (UA) (Negative) Urine Ketones (Negative) Urine Blood (Negative) Urine Nitrite (Negative) Urine Bilirubin (Negative) Urine Urobilinogen (0.2-1.0) Ur Leukocyte Esterase (Negative) Urine RBC (0-2) Urine WBC (0-5) Ur Squamous Epith Cells (None-Few) Urine Bacteria (None) Urine HCG, Qual Negative (Negative) <Jonathan Hooper, DO - Last Filed: 09/03/23 08:04> ECG Data Attestation: I personally reviewed and interpreted this ECG as follows: <Jonathan Hooper DO - Last Filed: 09/03/23 08:04> Interpretation: Possible junctional rhythm but hard to say with the artifact, normal intervals, normal axis, no ST or T-wave abnormalities. There is a heart rate of 63 beats per minute <Jonathan Hooper DO - Last Filed: 09/03/23 08:04> Discharge Plan Discharge Patient Disposition: XFER to OR <Pete Fletcher MD - Last Filed: 09/01/23 15:50>
--- NOTE | 2023-09-01 16:06 | P.GSHP_ITS ---
History of Present Illness History of Present Illness Date Seen: 09/01/23 Chief complaint: Chest pain, short of breath Narrative: Cady Parks is a 28 year old female who presented to the emergency department with chest pain. She states that she woke up this morning with what felt like stomach cramping. She thought she was hungry so she 8, however this did not help. She states that she had pressure and pain in her stomach radiating up to her chest and between her shoulder blades. She states that it felt like bad heartburn. The pain also is worse with movement and causes her to be short of breath. She had been in [place] because her car broke down and so she had to drive an hour and half back to [place]. She said that she had significant can not discomfort riding in the car. She had a bowel movement and burped which helped her discomfort. She now feels somewhat better. She had an episode like this approximately 1.5 years ago. She was prescribed an acid renea but never was able to pick this up from the pharmacy. She did not have any symptoms since. She has not had any fevers though she feels cold. [facility] Medical History (Updated 09/01/23 @ 17:48 by Layla Garcia MD) Scoliosis ?M41.9 - Scoliosis, unspecified (ICD-10) Depression ?F32.A - Depression, unspecified (ICD-10) Anxiety ?F41.9 - Anxiety disorder, unspecified (ICD-10) Surgical History (Updated 09/01/23 @ 17:48 by Layla Garcia MD) S/P tonsillectomy ?Z90.89 - Acquired absence of other organs (ICD-10) Social History (Updated 09/01/23 @ 17:48 by Layla Garcia MD) Narrative: She does not drink alcohol. She does smoke medical marijuana. She vapes occasionally. She is not currently working. She lives in [place] with her daughter. Smoking Status: Current some day smoker Do you use any of these nicotine containing products: Vaping Products How often do you have a drink containing alcohol: never How often do you have six or more drinks on one occasion: Never AUDIT-C Alcohol total score: 0 Non-prescribed substance use: marijuana (any form) Non-prescribed substance use details: medical marijuana smokes for 2 years service: No Meds Home Medications and Allergies Home Medications Medication Instructions Recorded Confirmed Type escitalopram oxalate 09/01/23 History hydroxiz 09/01/23 History Allergies Allergy/AdvReac Type Severity Reaction Status Date / Time No Known Drug Allergies Allergy Verified 09/01/23 13:58 Exam Narrative: Exam Narrative: General appearance: Alert, cooperative, and in no distress Eyes: PERRLA, eye lids clear, and sclera white HENT Head: Normocephalic Ears: External ears normal Pulmonary: Clear to auscultation bilaterally Cardiovascular Heart: Regular rate and rhythm Extremities: warm and well perfused Gastrointestinal Abdominal: Mildly distended. No scars. She is mildly tender in the epigastric region with a very mild positive Prather sign. Musculoskeletal: Extremities: Upper: Both upper extremities have normal joint range of motion and intact strength. Lower: Both lower extremities have normal joint range of motion and intact strength. Skin: Normal skin color, texture, and turgor. Neurologic: No focal deficits Psychiatric: Alert, oriented, cooperative, normal affect. Const: Vital Signs, click to edit/add: Vital Signs - 24 hr 09/01/23 13:54 09/01/23 14:31 Temperature 98.6 F Pulse Rate [Right Pulse Oximeter] 65 63 Respiratory Rate 18 26 H Blood Pressure [Ri ght Upper Arm] 129/74 123/88 Pulse Oximetry 99 97 Oxygen Delivery Me thod Room Air Room Air Results Results Labs: White blood cell count is elevated at 12.8. AST is mildly elevated at 58. Amylase is mildly elevated at 111. Sodium is low at 131. Remainder of labs are normal. Abdominal ultrasound report/results: report reviewed and image reviewed Additional studies: Gallbladder ultrasound from 09/01/2023: IMPRESSION: 1. Cholelithiasis, gallbladder sludge, gallbladder wall thickening, trace pericholecystic fluid and stone noted at the gallbladder neck. Appearance is suspicious for cholecystitis. 2. Normal diameter common duct. Dictated by Torsten Downs MD @ 09/01/2023 3:22:46 PM Assessment and Plan Assessment and plan (1) Hyponatremia: Status: Acute (2) Acute cholecystitis: Status: Acute Plan The patient is a 28-year-old female with acute cholecystitis. I explained that the treatment for this is laparoscopic cholecystectomy. We discussed the procedure as well as risks and benefits of surgery which include bleeding, infection, bile leak, conversion to open or injury to other structures, specifically the common bile duct. We also discussed recovery. She does have a mildly elevated amylase but a normal caliber common bile duct, and therefore I recommend admission to the hospital overnight and rechecking labs in the morning. If the elevated amylase has resolved then we can proceed with surgery. If not she understands she may need further workup/procedures. Since she has an elevated white blood cell count and a low-grade fever it is reasonable to start her on antibiotics as well. I suspect hyponatremia will resolve with IV fluids the we will recheck this in the morning.
[2023-09-01 16:44] LABS: Appearance Urine Clear (Clear); Bilirubin Urine Negative (Negative); Blood Urine Negative (Negative); Color Urine Yellow (Yellow); Glucose Urine Negative (Negative); Ketones Urine Negative (Negative); Leukocyte Esterase Urine Trace (Negative); Nitrite Urine Positive (Negative); Protein Urine Negative (Negative); Urobilinogen Urine 0.2 (0.2-1.0); pH Urine 8.5 (5.0-8.5)
[2023-09-01 17:00] LABS: Basophils Percent Auto 0.2 % (0.0-3.0); Hematocrit 39.3 % (33.0-51.0); Hemoglobin* 13.1 gm/dL (12.0-16.0); Immature Granulocytes Pct Auto 0.1 %; Lymphocytes Percent Auto 17.7 % (20-44); Mean Corpuscular HGB Conc 33 gm/dL (32-36); Mean Corpuscular Hemoglobin 31 pg (26-34); Mean Corpuscular Volume 94 fL (80-100); Monocytes Percent Auto 5.8 % (0.0-11.0); Neutrophils Percent Auto 75.2 % (42.0-72.0); Platelet Count* 315 K/uL (140-440); RDW Coefficient of Variation % 12.9 % (11.5-15.5); Red Blood Count 4.19 m/uL (4.00-5.20); White Blood Count* 12.83 K/uL (4.50-11.00)
[2023-09-01 17:01] LABS: Slide Review Reflex No
[2023-09-01 17:46] LABS: Bacteria Urine Few; RBC Urine 0-2 (0-2); Squamous Epithelial Cell Urine Few (None-Few); WBC Urine 0-2 (0-5)
[2023-09-01] MEDS: MORPHINE 4 MG/ML INJ IVP (18:32)
[2023-09-01] MEDS: MORPHINE 2 MG/ML inj IVP (19:24)
[2023-09-01] MEDS: KETOROLAC 15 MG/ML inj IVP (19:24)
[2023-09-01] MEDS: PIPERACILLIN/TAZOBACTAM 3.375 GM in 0.9 % SODIUM CHLORIDE Mini-bag 100 ML IVPB (19:39)
[2023-09-02] VITALS (27 sets, daily range): BP systolic 103–121; BP diastolic 66–84; PULSE 58–86; RESP 14–18; TEMP 36.5–37.2; O2SAT 97–100; BMI 17.7
[2023-09-02] MEDS: HYDROmorphone 0.5 mg/0.5 ml inj IVP ×3 (00:15→12:57)
[2023-09-02] MEDS: MORPHINE 4 MG/ML INJ IVP (01:37)
[2023-09-02] MEDS: PIPERACILLIN/TAZOBACTAM 3.375 GM in 0.9 % SODIUM CHLORIDE Mini-bag 100 ML IVPB ×4 (03:01→21:56)
[2023-09-02] MEDS: 0.9 % SODIUM CHLORIDE 1000 ml 1,000 ML 100 ML IV (03:01)
[2023-09-02] MEDS: MORPHINE 2 MG/ML inj 4 MG IVP (07:04)
[2023-09-02 07:19] LABS: Basophils Percent Auto 0.1 % (0.0-3.0); Eosinophils Percent Auto 0.3 % (0.0-7.0); Hematocrit 42.6 % (33.0-51.0); Hemoglobin* 13.9 gm/dL (12.0-16.0); Immature Granulocytes Pct Auto 0.1 %; Lymphocytes Percent Auto 11.9 % (20-44); Mean Corpuscular HGB Conc 33 gm/dL (32-36); Mean Corpuscular Hemoglobin 29 pg (26-34); Mean Corpuscular Volume 90 fL (80-100); Monocytes Percent Auto 6.3 % (0.0-11.0); Neutrophils Percent Auto 81.3 % (42.0-72.0); Platelet Count* 306 K/uL (140-440); RDW Coefficient of Variation % 12.7 % (11.5-15.5); Red Blood Count 4.74 m/uL (4.00-5.20); White Blood Count* 14.07 K/uL (4.50-11.00)
[2023-09-02] MEDS: LACTATED RINGERS 1000 ML 1,000 ML 100 ML IV ×2 (07:40→09:45)
[2023-09-02 07:54] LABS: Chloride* 106 mmol/L (96-114); Potassium* 4.2 mmol/L (3.6-5.1); Sodium* 130 mmol/L (135-149)
[2023-09-02 07:56] LABS: Anion Gap 4 mEq/L (7-15); Aspartate Amino Transferase* 152 U/L (12-35); Bilirubin Direct* 0.3 mg/dL (0.0-0.5); Bilirubin Total* 1.7 mg/dL (0.1-1.5); Carbon Dioxide* 20 mmol/L (20-32); Creatinine* 0.5 mg/dL (0.5-1.5); Estimated Glomerular Filt Rate 133 ml/min; Total Protein* 6.9 g/dL (6.0-8.3)
[2023-09-02 07:57] LABS: Alanine Aminotransferase* 266 U/L (4-35); Alkaline Phosphatase* 123 U/L (40-150); Blood Urea Nitrogen* 8 mg/dL (5-24); Calcium* 8.7 mg/dL (8.4-10.6); Glucose* 122 mg/dL (60-115); Lipase* 46 U/L (23-300)
--- NOTE | 2023-09-02 08:06 | SUR.PREOP ---
PATIENT TRANSFERED FROM THE EMERGENCY DEPT. IV INTACT AND LACTATED RINGERS HUNG. SHE IS ADMITTED AND READY FOR A LAP NI.
[2023-09-02 08:07] LABS: Ur HCG Qualitative* Negative (Negative)
[2023-09-02 08:18] LABS: Slide Review Reflex No
[2023-09-02] MEDS: PIPERACILLIN/TAZOBACTAM 3.375 GM INJ IVPB (08:55)
[2023-09-02] MEDS: BUPIVACAINE 0.25% 30 ML 9 ML INJECTION (09:10)
--- NOTE | 2023-09-02 09:11 | SUR.OPER ---
PATIENT QUESTIONS ANSWERED SATISFACTORILY PREOPERATIVELY. PATIENT BROUGHT TO OR #4 PER CART. Patient positioned supine on OR #4 bed. The perioperative team supported arms bilaterally on arm boards. Final approval of positioning by surgeon.
--- NOTE | 2023-09-02 09:28 | W.ANESCHARGE ---
Anesthesia Charges Start Date/Time Anesthesia Start Date: 09/02/23 Anesthesia Start Time: 08:49 Stop Date/Time Anesthesia Stop Date: 09/02/23 Anesthesia Stop Time: 10:35 Summary Emergency: MDA
--- NOTE | 2023-09-02 10:24 | PM.GSPRC ---
Operative Note Pre-op diagnosis: Acute cholecystitis Post-op diagnosis: Same Type of Procedure: Laparoscopic cholecystectomy Indications: The patient is a 28-year-old female who presented to the emergency department yesterday with epigastric and chest pain. Workup revealed marked gallbladder wall thickening and gallstones with a normal caliber common bile duct, consistent with acute cholecystitis. She did have a mildly elevated amylase. She was admitted overnight with plans to repeat labs in the morning and perform cholecystectomy. The following day her liver tests were more elevated, however not in a cholestatic pattern. Her lipase was normal. I again recommended cholecystectomy in the patient agreed to proceed. Procedure Description: After discussing the risks and benefits of the procedure, the patient signed informed consent.? The operative site was marked and the patient was brought to the operating room and placed on the operating table in supine position.? Care was taken to pad the patient's pressure points.?? The patient was then interval by anesthesia.?? The operative site was then prepped and draped in the usual sterile fashion.? A time-out was then performed. Entrance to the abdomen was gained via Melo technique below the umbilicus. A 12 mm port was placed. The abdomen was then insufflated. A 5 mm port was placed under direct vision in the left upper quadrant. An additional 2 5 mm working ports were placed along the right costal margin, all under direct vision. The patient was then placed in reverse Trendelenburg position with the right side up. The gallbladder was markedly edematous. There was fluid noted around the gallbladder. The fundus was grasped and retracted cephalad. A small amount of dissection was needed to free omental adhesions from the gallbladder. The infundibulum was grasped. A combination of hook cautery and blunt dissection was used to carefully dissect out the cystic duct and artery. There was a significant amount of inflammation with bleeding during this dissection. Bleeding was controlled with a combination of cautery and clips. The cystic artery was encountered and dissected free. This was clipped with 2 clips proximally and 1 clip distally and divided. This helped control hemostasis during the remaining dissection. I was then able to dissect out the cystic duct and obtain the critical view. The cystic duct was of normal caliber. This was clipped with 2 clips proximal and 1 clip distal. This was then divided with scissors. The gallbladder was then taken off of the liver bed using cautery. Again this was markedly edematous. This was then removed from the abdomen using an Endo-Catch bag. The gallbladder was so edematous that this necessitated extending the infraumbilical incision to accommodate. The gallbladder bed was surveyed for hemostasis which appeared excellent, however a small piece of Surgicel was placed in the gallbladder bed. A small amount of bile which had spilled was suctioned from the abdomen. The remaining ports were then removed and the abdomen desufflated. The umbilical port site fascia was closed with 0 Vicryl in an interrupted fashion. The skin was closed with absorbable subcuticular suture. Sterile dressings were then applied Instrument sponge and needle counts were correct at the end of the case. The patient was then woken and transferred to the PACU in stable condition. ? The patient tolerated the procedure well. Findings: Acute cholecystitis with markedly distended gallbladder. Large gallstones. Normal caliber cystic duct Anesthesia: GETA Surgeon: Layla Garcia MD Estimated blood loss (mL): 100 Specimen: Gallbladder Condition: stable Disposition: PACU Date of procedure: 09/02/23
--- NOTE | 2023-09-02 12:59 | W.ANESCHARGE ---
Anesthesia Charges Start Date/Time Anesthesia Start Date: 09/02/23 Anesthesia Start Time: 08:49 Stop Date/Time Anesthesia Stop Date: 09/02/23 Anesthesia Stop Time: 10:35 Summary Emergency: MDA
[2023-09-02] MEDS: ACETAMINOPHEN 325 MG TABLET 650 MG PO (13:05)
[2023-09-02] MEDS: HYDROCODONE-ACETAMIN 5-325 MG 1 TAB PO ×3 (14:46→23:58)
[2023-09-02] MEDS: MENTHOL 57 GM GEL TOPICAL ×2 (16:54→18:27)
[2023-09-02] MEDS: SIMETHICONE 80 MG TAB.CHEW 160 MG PO (18:25)
--- NOTE | 2023-09-02 19:55 | PC.NURSE ---
Dr. Garcia called at 1438 due pts. Rt upper incision and her umbilical incision. MD wanted pressure on the incision for 5 min and reapply the steri strips. Incisions are no longer bleeding. called again at 1638 due to pt c/o on Lt shoulder pain. Pt. requested a methenol cream. Order received for medications.
--- NOTE | 2023-09-02 21:47 | PC.NURSE ---
Small amount of drainage/bleeding noted around umbilicus site. Applied pressure for 5 minutes and changed steri strips. Patient reports increased swelling and firmness to site. Nursing supervisor mold cleaning and storage at bedside to assess. Patient voided and abdominal site below umbilicus felt softer. Dr. Garcia arrived at bedside and assessed the patient. No concerns noted per Dr. Garcia. Per Dr. Garcia, can advance patient's diet to whatever she will tolerate and wants.
[2023-09-03] VITALS: PULSE 76; RESP 16
[2023-09-03 04:06] VITALS: BP 102/63; PULSE 63; RESP 16; TEMP 36.6; O2SAT 98
[2023-09-03] MEDS: PIPERACILLIN/TAZOBACTAM 3.375 GM in 0.9 % SODIUM CHLORIDE Mini-bag 100 ML IVPB (04:21)
[2023-09-03] MEDS: SIMETHICONE 80 MG TAB.CHEW 160 MG PO (04:37)
[2023-09-03] MEDS: HYDROCODONE-ACETAMIN 5-325 MG 1 TAB PO ×2 (04:39→09:56)
[2023-09-03] MEDS: MENTHOL 57 GM GEL TOPICAL (04:41)
[2023-09-03 04:57] VITALS: PULSE 63; RESP 16
[2023-09-03 07:24] LABS: Basophils Absolute Auto 0.03 K/uL (0.00-0.30); Basophils Percent Auto 0.4 % (0.0-3.0); Eosinophils Absolute Auto 0.08 K/uL (0.00-0.50); Hematocrit 35.4 % (33.0-51.0); Hemoglobin* 11.4 gm/dL (12.0-16.0); Immature Granulocytes Abs Auto 0.01 K/uL (0.00-0.30); Immature Granulocytes Pct Auto 0.1 %; Lymphocytes Percent Auto 33.8 % (20-44); Mean Corpuscular HGB Conc 32 gm/dL (32-36); Mean Corpuscular Hemoglobin 30 pg (26-34); Mean Corpuscular Volume 92 fL (80-100); Monocytes Percent Auto 9.1 % (0.0-11.0); Neutrophils Absolute Auto 4.61 K/uL (1.7-7.0); Neutrophils Percent Auto 55.6 % (42.0-72.0); Platelet Count* 269 K/uL (140-440); Red Blood Count 3.85 m/uL (4.00-5.20); White Blood Count* 8.28 K/uL (4.50-11.00)
[2023-09-03 07:25] LABS: Slide Review Reflex No
[2023-09-03 07:35] LABS: Albumin* 3.2 g/dL (3.3-5.0); Chloride* 106 mmol/L (96-114); Potassium* 4.4 mmol/L (3.6-5.1); Sodium* 137 mmol/L (135-149)
[2023-09-03 07:38] LABS: Alanine Aminotransferase* 159 U/L (4-35); Alkaline Phosphatase* 93 U/L (40-150); Anion Gap 6 mEq/L (7-15); Aspartate Amino Transferase* 39 U/L (12-35); Bilirubin Direct* 0.2 mg/dL (0.0-0.5); Bilirubin Total* 1.3 mg/dL (0.1-1.5); Blood Urea Nitrogen* 6 mg/dL (5-24); Calcium* 8.3 mg/dL (8.4-10.6); Carbon Dioxide* 25 mmol/L (20-32); Creatinine* 0.6 mg/dL (0.5-1.5); Estimated Glomerular Filt Rate 127 ml/min; Glucose* 106 mg/dL (60-115)
[2023-09-03 09:45] VITALS: BP 99/56; PULSE 78; RESP 16; TEMP 36.9; O2SAT 98
--- NOTE | 2023-09-03 13:46 | P.DS_ITS ---
DS: Providers Provider Date Seen: 09/02/23 Primary care physician: Not a Local Provider Attending Physician on discharge: Layla Garcia MD DS: Diagnosis Discharge Diagnosis (1) S/P laparoscopic cholecystectomy: Status: Acute DS: Summary Hospital Course Hospital Course: The patient is a 28-year-old female who presented to the emergency department with acute cholecystitis. She was admitted to the hospital and underwent cholecystectomy following morning. She did remain overnight in the hospital because of the amount of inflammation during the procedure. By the evening of postop day 0 she was feeling better, ambulating and voiding without difficulty. She discharged home on postop day 1 after ensuring improvement in her laboratory values. Time Spent with Patient Time attestation: Total time spent providing and/or coordinating discharge services: Exam Narrative: Exam Narrative: Exam performed at 10:00 p.m. on 09/03/2023: Patient is alert and walking around in her hospital room. Abdomen is soft. Appropriately tender for the postoperative state. Incisions are clean and dry. No ecchymosis noted. Const: Vital Signs, click to edit/add: Vital Signs - 24 hr 09/02/23 14:15 09/02/23 15:15 09/02/23 16:15 Temperature 98.3 F Pulse Rate [Right Pulse Oximeter] 84 78 82 Respiratory Rate 18 18 18 Blood Pressure [Le ft Arm] 112/72 110/76 118/72 Pulse Oximetry Oxygen Delivery Me thod 09/02/23 17:15 09/02/23 19:16 09/02/23 19:16 Temperature 97.9 F 97.9 F Pulse Rate [Right Pulse Oximeter] 76 72 72 Respiratory Rate 18 16 16 Blood Pressure [Le ft Arm] 113/76 114/76 114/76 Pulse Oximetry 98 98 Oxygen Delivery Me thod Room Air Room Air 09/02/23 23:50 09/03/23 00:00 09/03/23 04:06 Temperature 98 F 97.8 F Pulse Rate [Right Pulse Oximeter] 76 76 63 Respiratory Rate 16 16 16 Blood Pressure [Le ft Arm] 117/72 102/63 Pulse Oximetry 97 98 Oxygen Delivery Me thod Room Air Room Air 09/03/23 04:57 09/03/23 09:45 Temperature 98.4 F Pulse Rate [Right Pulse Oximeter] 63 78 Respiratory Rate 16 16 Blood Pressure [Le ft Arm] 99/56 L Pulse Oximetry 98 Oxygen Delivery Me thod DS: Data Data Completed and Pending Labs on day of discharge: Labs from last 24 hours 09/03/23 07:05 WBC 8.28 RBC 3.85 L Hgb 11.4 L Hct 35.4 MCV 92 MCH 30 MCHC 32 RDW Coeff of [place] 13.0 Plt Count 269 Neut % (Auto) 55.6 Lymph % (Auto) 33.8 [place] % (Auto) 9.1 Eos % (Auto) 1.0 Baso % (Auto) 0.4 Neut # (Auto) 4.61 Lymph # (Auto) 2.80 [place] # (Auto) 0.80 Eos # (Auto) 0.08 Baso # (Auto) 0.03 Abs Immat Gran (auto) 0.01 Imm/Tot Granulo (auto) 0.1 Sodium 137 Potassium 4.4 Chloride 106 Carbon Dioxide 25 Anion Gap 6 L BUN 6 Creatinine 0.6 Estimated Creat Clear 111.70 Estimated GFR 127 Glucose 106 Calcium 8.3 L Total Bilirubin 1.3 Direct Bilirubin 0.2 AST 39 H ALT 159 H Alkaline Phosphatase 93 Total Protein 6.0 Albumin 3.2 L Preliminary micro results at discharge 09/01/23 Unknown Urine Culture - Preliminary Urine,Clean Catch Gram negative tapan Discharge Plan Discharge Disposition: Home, Self-Care Discharging Surgeon: Layla Garcia Follow-Up Appointment: 2 weeks [facility] Prescriptions: New hydrocodone-acetaminophen 5-325 mg tablet 1 - 2 tab PO Q6H PRN (Reason: Pain) Qty: 25 0RF Rx Instructions: 1 - 2 tab orally as needed hydrocodone-acetaminophen 5-325 mg Tablet 1 - 2 tab PO Q6H PRN (Reason: Pain) Qty: 20 0RF Continued hydroxizine 25 mg PO TID PRN escitalopram oxalate 10 mg PO .QD Activity Level: Activity as Tolerated Activity Detail: No lifting more than 20 pounds for 2 weeks Discharge Diet: Regular Patient Instructions: General Anesthesia (DC), Laparoscopic Cholecystectomy (DC) Additional Instructions: Wound care: Your sutures are under the skin and will dissolve over time. Leave steri strips (white bandages) over incisions until they fall off (or remove after 7 days). OK to shower tomorrow but avoid bathing, soaking or swimming for 2 weeks. Pat the incisions dry. No need to wash or scrub the area. Apply ice to the area as needed for swelling. It is also OK to use a heating pad if this provides more comfort to you. Pain control: You were prescribed a pain medication. This medication contains acetaminophen (Tylenol). If you are taking your prescribed pain pills 4 times daily, do not take additional acetaminophen. As your pain improves, you can try taking acetaminophen instead of the prescribed pain pill. It is ok to take Ibuprofen or Naproxen (per directions on packaging). This medication helps with inflammation and swelling. Take an [id number] stool softener while you are taking prescribed pain medications to help alleviate constipation. I recommend Senna and/or Colace. Take as directed on package. If you have not had a bowel movement in 3 days, try taking Miralax as directed on the package. All of these are available over the counter. Follow-up Follow up with Dr. Garcia in 2-3 weeks Please call if you are experiencing severe pain, nausea, vomiting, difficulty urinating, fever or have not had bowel movement in 4 days after surgery. Forms: Work/School Release Follow-up: Layla Garcia MD [Staff Physician] - Provider,Not a Local [Primary Care Provider] - Discharge Orders: Discharge Order (Routine); Ordered 09/03/23 Ordered By: Layla Garcia
== END 2023-09-03 10:10 | disposition home or self-care (01) ==
LOC: ED 18:52 → OR 09-02 07:35 → OB 09-02 13:17
PROVIDERS: Anesthesiology; Emergency Provider Internal Medicine; Visit Provider Surgery
PROC: 0FT44ZZ Resection of Gallbladder, Percutaneous Endoscopic Approach (ICD-10-PCS; CPT 47562; principal; 2023-09-02 09:15)
DX: K80.00 Calculus of gallbladder with acute cholecystitis without obstruction (principal); E87.1 Hypo-osmolality and hyponatremia; R07.9 Chest pain, unspecified
CPT/HCPCS: 47562; 00790; 36415; 71045; 76705; 80048; 80053; 80076; 81003; 81015; 81025; 82150; 83690; 84484; 85025; 85379; 87086; 87186; 88304; 93005; 94761; 99140; 99283; 99284; 99285; A9270; J0665; J1100; J1170; J1885; J2250; J2270; J2405; J2543; J2704; J3010; J7030; J7120

== ENCOUNTER 2025-03-06 19:55 | Outpatient (CLI) | payer BC, SELFPAY | END 2025-03-06 19:56 | disposition home or self-care (01) | LOC: AMB 03-07 12:29 | PROVIDERS: Visit Provider Family Medicine | DX: T71.193A Asphyxiation due to mechanical threat to breathing due to other causes, assault, initial encounter (principal); Y04.8XXA Assault by other bodily force, initial encounter; Y92.009 Unspecified place in unspecified non-institutional (private) residence as the place of occurrence of the external cause | CPT/HCPCS: A0425; A0427 ==

== ENCOUNTER 2025-03-06 20:29 | Emergency (ER) | payer BC, SELFPAY ==
--- OUTSIDE RECORDS SUMMARY | 2024-10-31 02:27 | XMS_ITS | Continuity of Care Document ---
Author Organization [facility] Address [address] [place] [id number] Care Team Providers Care Precision Instrument Maker Name Role Phone SchmittNavi Unavailable Unavailable Allergies, Adverse Reactions, Alerts Substance Reaction Status Criticality onion Active No Information Advance Directives Directive Yes / No Effective Date File Name No Information Encounters Encounter Description Practice Location Reason(s) For Visit Diagnoses Date Provider Providers Copied on Encounter [facility] , [address] [place] [address], [phone] No Information Oskar Mcelroy. . [facility] , [address] [place] [address], [phone], [facility] No Information 5 Oskar Mcelroy. . Family History Family Member Type Diagnosis Age At Onset No Information Payers Payer name Insurance type Covered constitution party ID Authoriza tion(s) No Information Social History Type Description Quantity Date Captured Comments Alcohol Use Details Unknown Caffeine Use Details Unknown Tobacco Use Status No Information Smoking Status No Information Sex Female Chief Complaint And Reason For Visit No Information Reason For Referral Reason For Referral No Information History Of Present Illness Encounter Date Complaint History Of Prese nt Illness No Information Functional Status Date Functional Assessmen t No Information Instructions Date Instruction Additional Infor mation No Information Assessments Type Assessment Date No Information Patient Care Teams Name Effective Dates (start - stop) Status Members No Information
--- OUTSIDE RECORDS SUMMARY | 2024-10-31 02:27 | XMS_ITS | Continuity of Care Document ---
Author Organization [facility] Address [address] [place] [phone] Care Team Providers Care Appliance Mechanic Name Role Phone SchmittNavi Unavailable Unavailable Allergies, Adverse Reactions, Alerts Substance Reaction Status Criticality onion Active No Information Advance Directives Directive Yes / No Effective Date File Name No Information Encounters Encounter Description Practice Location Reason(s) For Visit Diagnoses Date Provider Providers Copied on Encounter [facility] , [address] [place] [address], [phone], [facility] No Information Oskar Mcelroy. . [facility] , [address] [place] [address], [phone], [facility] No Information 5 Oskar Mcelroy. . Family History Family Member Type Diagnosis Age At Onset No Information Payers Payer name Insurance type Covered democrat ID Authoriza tion(s) No Information Social History [...]
--- OUTSIDE RECORDS SUMMARY | 2025-03-06 20:30 | XMS_ITS | Clinical Summary ---
Author Organization [facility] Address [address] [place] [address] Care Team Providers Care Calibration Technician Name Role Phone No Primary/Referring, Phy Primary Care Provider Unavailable Source Comments You are receiving this document as you are listed as the primary care provider,follow-up provider, or the patient has been referred to you for consultation.This is in compliance with the Medicare andMedicaid EHR Incentive Program,which states Providers who transition their patient to another setting of careor provider of care or refers their patient to another provider of care shouldprovide summary care record for each transition of care or referral. [facility] Allergies No known active allergies Medications acetaminophen (TYLENOL) 500 MG tablet Take 2 Tablets (1,000 mg) by mouth every 6 hours as needed for Pain. Maximum acetaminophen dose is 4000 mg in 24 hours 30 Tablet 5 11:02 AM EMBALMER ASSISTANT 10/21/19 25 Active ibuprofen (MOTRIN) 600 MG tablet Take 1 Tablet (600 mg) by mouth every 6 hours as needed for Pain. 30 Tablet 5 11:02 AM EMBALMER ASSISTANT 10/21/19 25 Active ondansetron (ZOFRAN-ODT) 4 MG disintegrating tablet Dissolve 1 Tablet (4 mg) by mouth every 8 hours as needed for Nausea. 10 Tablet 5 11:02 AM EMBALMER ASSISTANT 10/21/19 25 Active buPROPion (WELLBUTRIN XL) 300 MG 24 hour release tablet Take 1 Tablet (300 mg) by mouth daily. 09/26/20 24 Active traZODone (DESYREL) 100 MG tablet Take 1-3 Tablets (100-300 mg) by mouth at bedtime as needed. 09/26/20 24 Active simethicone (MYLICON) 80 MG chewable tablet Chew and swallow 1 Tablet (80 mg) by mouth 4 times daily as needed. 08/30/20 24 Active naltrexone (REVIA) 50 MG tablet Take 1 Tablet (50 mg) by mouth daily. 08/21/20 24 Active methocarbamol (ROBAXIN) 500 MG tablet Take 1 Tablet (500 mg) by mouth two times daily as needed. Active Active Problems Problem Noted Date Diagnosed Date Acute gastroenteritis 10/22/2024 Hyponatremia 10/21/2024 Immunizations Immunization Administration Dates Next Due 4vHPV (Gardasil) 09/26/2009,05/27/2009, 9 DTaP 01/15/2002, 8,1997,1996,1997 HepA Ped/Adol (1-18 yrs) 02/21/2015,05/21/2013,0 12/01/2012 HepB Ped/Adol (0-18 yrs) 03/14/2015,1997 HepB, Unspecified Formulation 1997, 997 Hib (ActHIB) 08/28/1998, 7,1997,1996 IPV (Polio) 01/15/2002, 8,1997,1996 Influenza, Unspecified Formulation 08/25/2010 MCV4 (Menactra) 05/21/2013,02/24/2009 MMR 03/14/2015,05/27/2009,06/09/1998 Tdap 07/23/2021,03/17/2016,02/24/2009 Typhoid, Parenteral Heat-Phe nol Inactivated 12/01/2012 Varicella 03/14/2015,05/27/2009,06/09/1998 Social History Tobacco Use Types Packs/Day Years Used Date Smoking Tobacco: Never Assessed Humiliation, Afraid, Rape, and Kick questionnair e Answer Date Recorded Within the last year, have y ou been afraid of your partner or ex-partner? No 10/21/2024 Within the last year, have y ou been humiliated or emotionally abused in other ways by your partner or ex-partner? No Within the last year, have y ou been kicked, hit, slapped, or otherwise physically hurt by your partner or ex-partner? No 10/21/2024 Within the last year, have y ou been raped or forced to have any kind of sexual activity by your partner or ex-partner? No 10/21/2024 Comments No Sex and Gender Information Value Date Recorded Sex Assigned at Not on file Legal Sex Female 1:19 AM EMBALMER ASSISTANT Gender Identity Not on file Sexual Orientation Not on file Last Filed Vital Signs Vital Sign Reading Time Taken Comments Blood Pressure 122/80 10/23/2024 7:09 AM EMBALMER ASSISTANT Pulse 87 10/23/2024 7:09 AM EMBALMER ASSISTANT Temperature 36.6 C (97.9 F) 10/23/2024 7:09 AM EMBALMER ASSISTANT Respiratory Rate 18 10/23/2024 7:09 AM EMBALMER ASSISTANT Oxygen Saturation 98% 10/23/2024 7:09 AM EMBALMER ASSISTANT Inhaled Oxygen Concentration - - Weight 59.8 kg (131 lb 13.4 oz) 10/23/2024 9:51 AM EMBALMER ASSISTANT Height 165.1 cm (5' 5) 10/23/2024 9:51 AM EMBALMER ASSISTANT Body Mass Index 21.94 10/23/2024 9:51 AM EMBALMER ASSISTANT Plan of Treatment Health Maintenance Due Date Last Done Comments Cervical Cancer Screening Due 1997 Hep C Screening (Preventive Services) 1997 HIV Screening (Preventive Services) 2013 Adult Preventive Visit 2015 HepB Vaccine (1) 03/14/2016 03/14/2015, 12/1997, 1997, Additional history exists COVID-19 Vaccine ( season) 2024 Influenza Vaccine (Season Ended) 2025 08/25/2010 DTaP/Tdap/Td Vaccine (9 - Tdap) 07/23/2031 07/23/2021, 03/17/2016, 02/24/2009, Additional history exists Zoster/Shingles Vaccine (1 of 2) 2047 Hib Vaccine Completed 08/28/1998, 02/1997, 1997, Additional history exists IPV (Polio) Vaccine Completed 01/15/2002, 08/28/1998, 1997, Additional history exists HPV Vaccine Completed 09/26/2009, 05/17, 02/24/2009 MCV4 Vaccine Completed 05/21/2013, 02/24/2009 HepA Vaccine Completed 02/21/2015, 02/2013, 12/01/2012 Varicella Vaccine Completed 03/14/2015, , 06/09/1998 Meningococcal B Vaccine Aged Out No l onger eligible based on patient's age to complete this topic Pneumococcal Vaccine Aged Out No long er eligible based on patient's age to complete this topic Insurance [facility] Advance Directives * Full Code (Latest Code Status on File) Date Activated Date Inactivated Comments 10/21/2024 4:04 PM 10/23/2024 2:25 PM Care Teams Calibration Technician Relationship Specialty Start Date End Date No Primary/Referring, Phy PCP - General 10/21/24
--- OUTSIDE RECORDS SUMMARY | 2025-03-06 20:31 | XMS_ITS | Clinical Summary ---
Author Organization [facility] Address [address] [place] [id number] Care Team Providers Care Supervisor Melt House Name Role Phone Pcp, No Primary Care Provider Unavailabl e Allergies Active Allergy Reactions Criticality Noted Date Comments Cat Dander Dizziness 06/13/2013 Rabbit Dander Anaphylaxis High 11/25/2017 Medications sertraline (ZOLOFT) 50 mg tabletIndicatio ns:Anxiety Take 1 tablet by mouth once daily. 30 tablet 2 9 Active simethicone chewable (MYLANTA GAS RELIEF; GAS X) 80 mg chewable tabletIndicatio ns:Acute abdominal pain Chew 1 Tablet (80 mg) by mouth 4 times daily if needed for Flatulence or GI Upset (Abd pain). Max dose: 500 mg per 24 hrs 30 Tablet Active Social History Tobacco Use Types Packs/Day Years Used Date Smoking Tobacco: Never Assessed Interpersonal Safety Answer Date Record ed Are you being hit, kicked, p ushed or yelled at (see row info)? No 08/30/2024 Interpersonal Safety Abuse 12 - 18 Not on file 08/30/2024 Interpersonal Safety Ambulatory Vulnerability No t on file 08/30/2024 Comments No Sex and Gender Information Value Date Recorded Sex Assigned at Not on file Legal Sex Female 7:01 AM SENIOR DATA SCIENTIST Gender Identity Not on file Sexual Orientation Not on file Last Filed Vital Signs Vital Sign Reading Time Taken Comments Blood Pressure 110/70 08/30/2024 10:39 AM SENIOR DATA SCIENTIST Pulse 70 08/30/2024 10:39 AM SENIOR DATA SCIENTIST Temperature 36.7 C (98.1 F) 08/30/2024 7:14 AM SENIOR DATA SCIENTIST Respiratory Rate 18 08/30/2024 10:39 AM SENIOR DATA SCIENTIST Oxygen Saturation 98% 08/30/2024 10:39 AM SENIOR DATA SCIENTIST Inhaled Oxygen Concentration - - Weight 58.1 kg (128 lb) 08/30/2024 7:14 AM SENIOR DATA SCIENTIST Height 167.6 cm (5' 6) 08/30/2024 7:14 AM SENIOR DATA SCIENTIST Body Mass Index 20.66 08/30/2024 7:14 AM SENIOR DATA SCIENTIST Plan of Treatment Health Maintenance Due Date Last Done Comments Tdap 02/23/2008 Depression screening for age 12+ 2009 HIV for age 15-65 02/23/2012 BMI (ht and wt on same day) for age 18+ 2015 Hepatitis C screening for ag e 18-79 2015 Tetanus booster 2017 Pap test for age 21-65 2018 COVID-19 vaccine series (2023- season) 2024 01/23/2021, 01/01/2021 Influenza Vaccine (Season Ended) 2025 Pneumococcal series for age 6-49 Aged Out No longer eligible b ased on patient's age to complete this topic Insurance [facility] Care Teams Supervisor Melt House Relationship Specialty Start Date End Date Pcp, No . PCP - General 06/25/19
--- OUTSIDE RECORDS SUMMARY | 2025-03-06 20:31 | XMS_ITS | Clinical Summary ---
Author Organization [facility] Address [address] [place] [address] Care Team Providers Care Fraternity Adviser Name Role Phone Collins Almonte M.D. Primary Care Provider [phone] Source Comments Patient records contain information from all sites at [facility]. For routine questions regarding patient records, call [phone] during business hours, M-F 8:00 AM - 5:00 PM Central Time. Record requests for emergency care only can be directed to [phone] at any time.[facility] Allergies Active Allergy Reactions Criticality Noted Date Comments Cat Dander Other (see comments) 06/13/2013 Rabbit Dander Anaphylaxis 11/25/2017 Medications * This document contains information received from the source organization and may not represent a complete record from that organization. levonorgestreL (MIRENA) 20 mcg/24 hours (7 yrs) 52 mg IUD 1 each by intrauterine route once. 7 Active escitalopram (LEXAPRO) 10 mg tablet Take 1 tablet (10 mg total) by mouth daily. 90 tablet 2 Active hydrOXYzine (ATARAX) 25 mg tabletIndicatio ns:Anxiety Generalized Disorder Take 1 tablet (25 mg total) by mouth 3 (three) times a day as needed for anxiety. 90 tablet 3 2 Active escitalopram (LEXAPRO) 20 mg tabletIndicatio ns:Anxiety Generalized Disorder Take 1 tablet (20 mg total) by mouth daily. 90 tablet 3 2 Active ibuprofen (ADVIL,MOTRIN) 600 mg tablet Take 1 tablet (600 mg total) by mouth every 6 (six) hours as needed for pain. 30 tablet 3 Active famotidine (PEPCID) 10 mg tablet Take 1 tablet (10 mg total) by mouth 2 (two) times a day as needed for heartburn for up to 60 doses. 60 tablet 3 Active cyclobenzaprine (FLEXERIL) 10 mg tablet Take 1 tablet by mouth three times daily as needed for muscle spasm 30 tablet 3 Active mupirocin (BACTROBAN) 2 % ointmentIndicat ions:Cellulitis Apply 1 Application topically 2 (two) times a day. Apply to under the left ear twice per day x 1 week 22 g 3 Active Active Problems Problem Noted Date Diagnosed Date Post Traumatic Stress Disorder Unspecified 02/28 Infection Chlamydia 07/09/2019 Rhinitis Allergic 07/20/2017 Overview (11/25/2017): per External Record info - 07/19/2017 Intrauterine Device Status 06/29/2017 Depression Major Recurrent Moderate Anxiety Generalized Disorder Resolved Problems Problem Noted Date Diagnosed Date Resolved Date Asthma Exercise Induced Bronchospasm 10/07/2010 09/03/2022 Overview (03/08/2017): Asthma, Unspecified Encounters Date Type Department Care Team Description 01/23/2025 Orders Only [facility] PCP [facility] MNT Collins Almotne M.D. from Last 3 Months Immunizations Immunization Administration Dates Next Due 4vHPV (discontinued) 09/26/2009,05/27/2009,02/24 DTaP (Infanrix, Tripedia) 01/15/2002,09/1998,1997,1996,1997 HepA Pediatric/Adolescent 02/21/2015,05/21/2013, 12/01/2012 HepB Pediatric/Adolescent 03/14/2015,1997 HepB, Unspecified 1997,1997,02/24/19 97 Hib (PRP-T) (ACTHIB, HIBERIX) 08/28/1998 ,1997,1997,1996 IPV 01/15/2002, 8,1997,1996 Influenza, Unspecified 08/25/2010 MCV4 (Menactra)(Discontinued) 05/21/2013, 009 MMR 03/14/2015,05/27/2009,06/09/1998 Tdap 07/23/2021,03/17/2016,02/24/2009 ALEC 03/14/2015,05/27/2009,06/09/1998 typhoid vaccine, parenteral (discontinued) 12/01/2012 Family History Medical History Relation Name Comments Asthma Brother tanesha villanueva Breast cancer Maternal Grandmother vanna gleason Lung cancer Maternal Grandmother vanna gleason Relation Name Status Comments Brother tanesha villanueva Maternal Grandmother vanna gleason Social History Tobacco Use Types Packs/Day Years Used Date Smoking Tobacco: Some Days Cigarettes 0.3 0.3 Started: 04/16/2018; Last attempted to quit: 07/31/2018 E-cigarettes Smokeless Tobacco: Never Tobacco Cessation:Ready to Q uit: Not Asked; Counseling Given: Not Answered Alcohol Use Standard Drinks/Week Comments Not Currently 0 (1 standard drink = 0.6 oz pur e alcohol) occasional Humiliation, Afraid, Rape, and Kick questionnair e Answer Date Recorded Within the last year, have y ou been afraid of your partner or ex-partner? Yes 02/02/2023 Within the last year, have y ou been humiliated or emotionally abused in other ways by your partner or ex-partner? Yes Within the last year, have y ou been kicked, hit, slapped, or otherwise physically hurt by your partner or ex-partner? Yes 02/02/2023 Within the last year, have y ou been raped or forced to have any kind of sexual activity by your partner or ex-partner? No 02/02/2023 Social Connection and Isolat ion Panel [NHANES] Answer Date Recorded In a typical week, how many times do you talk on the phone with family, friends, or neighbors? More than three times a week 02/02/2023 How often do you get togethe r with friends or relatives? Once a week 02/02/2023 How often do you attend chur ch or buddhist services? 1 to 4 times per year 02/02/2023 Do you belong to any clubs o r organizations such as nondenominational groups, unions, fraternal or athletic groups, or school groups? No 02/02/2023 How often do you attend meet ings of the clubs or organizations you belong to? Patient declined 02/02/2023 Are you , , di vorced, , never , or living with a partner? 02/02/2023 AUDIT-C Answer Date Recorded Q1: How often do you have a drink containing alc ohol? Never 02/02/2023 Average Number of Drinks Not on file 023 Frequency of Binge Drinking Not on file 01/15 Overall Financial Resource Strain (CARDIA) Answe r Date Recorded How hard is it for you to pa y for the very basics like food, housing, medical care, and heating? Very hard 02/02/2023 PHQ-2 Answer Date Recorded PHQ-2 Score 6 08/09/2023 [facility]at ional [facility] - Occupational Stress Questionnaire Answer Date Recorded Do you feel stress - tense, restless, nervous, or anxious, or unable to sleep at night because your mind is troubled all the time - these days? Rather much 02/02/2023 Exercise Vital Sign Answer Date Recorde d On average, how many days pe r week do you engage in moderate to strenuous exercise (like a brisk walk)? 1 day 02/02/2023 On average, how many minutes do you engage in exercise at this level? 30 min 02/02/2023 Hunger Vital Sign Answer Date Recorded Within the past 12 months, y ou worried that your food would run out before you got the money to buy more. Sometimes true Within the past 12 months, t he food you bought just didn't last and you didn't have money to get more. Sometimes true PRAPARE - Transportation Answer Date Re corded In the past 12 months, has l ack of transportation kept you from medical appointments or from getting medications? Yes 01/15 In the past 12 months, has l ack of transportation kept you from meetings, work, or from getting things needed for daily living? Yes 02/02/2023 Housing Stability Vital Sign Answer Shun e Recorded In the last 12 months, was t here a time when you were not able to pay the mortgage or rent on time? Patient refused 02/03/20 23 In the last 12 months, how many places have you lived? 2 02/02/2023 In the last 12 months, was t here a time when you did not have a steady place to sleep or slept in a fdc (including now)? Patient refused 02/02/2023 Depression Answer Date Recor ded PHQ-9 Total Score (max 27) 25 08/09 Nutrition Answer Date Recorded On average, how many serving s of fruits and vegetables do you eat per day (serving size is equal to 1 cup or approximately the size of a tennis ball)? 2-3 02/02/2023 Dental Answer Date Recorded Dental: Regular Dentist No 10/14/20 Employment Answer Date Recorded Employment status Unemployed/not in th e paid workforce and NOT seeking employment 02/02/2023 Education Answer Date Recorded What is the highest level of school you have completed or the highest degree you have received? 12th grade 07/04/2019 Comments No Sex and Gender Information Value Date Recorded Sex Assigned at Female 09/13/2018 4:41 PM ORGANIZATIONAL CONSULTANT Legal Sex Female 9:33 PM ORGANIZATIONAL CONSULTANT Gender Identity Female 09/13/2018 4:41 PM ORGANIZATIONAL CONSULTANT Sexual Orientation Straight 09/13/2018 4: 41 PM ORGANIZATIONAL CONSULTANT Last Filed Vital Signs Vital Sign Reading Time Taken Comments Blood Pressure 115/72 08/08/2024 9:45 PM CDT Pulse 68 08/08/2024 9:45 PM CDT Temperature 36.6 C (97.9 F) 08/08/2024 9:45 PM CDT Respiratory Rate 18 08/08/2024 9:45 PM CDT Oxygen Saturation 98% 08/08/2024 9:45 PM CDT Inhaled Oxygen Concentration - - Weight 55.5 kg (122 lb 5.7 oz) 08/07/2024 12:47 PM CDT Height 169.5 cm (5' 6.73) 11/09/2022 11:[address] Body Mass Index 19.32 11/09/2022 11:40 AM ORGANIZATIONAL CONSULTANT Plan of Treatment Health Maintenance Due Date Last Done Comments Hepatitis C Screening 1997 Pneumococcal vaccine (0-49 y ears) (1 of 2 - PCV) 02/23/2016 Tobacco Cessation counseling 11/09/2023 11/09/2022 Depression Monitoring (PHQ-9) 12/10/2023 08/09/2023 COVID-19 Vaccine (3 - 2023-2 5 season) 2024 01/23/2021, 01/01/2021 Influenza Vaccine (#1) 2024 08/25/2010 Depression Monitoring (PHQ-9 for quality tracking) 10/17/2024 Cervical/Vaginal Cancer Screening 04/09/2025 022, 09/13/2018 DTaP,Tdap,and Td Vaccines (9 - Td or Tdap) 07/23/2031 07/23/2021, 03/17/2016, 02/24/2009, Additional history exists IPV Vaccines Completed 01/15/2002, 08/17, 1997, Additional history exists HPV Vaccines Completed 09/26/2009, 05/17, 02/24/2009 Hepatitis B Vaccines Completed 03/14/2015, 1997, 1997, Additional history exists Varicella Vaccines Completed 03/14/2015, 0 05/27/2009, 06/09/1998 Procedures Procedure Name Priority Date/Time Associated Diagnosis Comments THINPREP SCREEN HPV REFLEX Routine 04/09/2022 4:14 PM CDT Preventive Gynecological Exam Screening For Venereal Disease from Last 3 Months or Most Recently Relevant to Health Maintenance Results * ThinPrep Screen HPV Reflex (04/09/2022 4:14 PM CDT) 04/14/2022 2:57 PM CDT [facility] Report electronically signed by MONICA Gary(ASCP) I verify that I have examined all relevant slides/materials for the specimen(s) and rendered or confirmed the diagnosis. 04/14/2022 2:57 PM CDT [facility] Gross Description Received specimen in a ThinPrep vial. 04/14/2022 2:57 PM CDT [facility] Pap Test Source Cervical/Endocervi nereyda 04/14/2022 2:57 PM CDT [facility] Hormone Therapy/Contracep tives None/Not known 04/14/2022 2:57 PM CDT [facility] Interpretation Cervical/Endocervi nereyda (ThinPrep): Satisfactory for Evaluation Negative for Intraepithelial Lesion or Malignancy Shift in sheri suggestive of bacterial vaginosis 04/14/2022 2:57 PM CDT [facility] Varies (Cervix/Endocerv ix) 04/09/2022 4:14 PM CDT 04/12/2022 7:32 AM CDT Ximena Cole APRN, C.N.P. LAB PAP PATHDX OR DERABLES Final Result [facility] [address] [place] [address], [facility] [address] [place] [address] from Last 3 Months or Most Recently Relevant to Health Maintenance Insurance [facility] Care Teams Fraternity Adviser Relationship Specialty Start Date End Date Collins Almonte M.D. [address] [facility] [place] [phone] [facility] - General 08/16/24
--- OUTSIDE RECORDS SUMMARY | 2025-03-06 20:31 | XMS_ITS | Encounter Summary ---
Author Organization [facility] Address [address] [place] [address] Care Team Providers Care Cafeteria Food Server Name Role Phone Collins Almonte M.D. Primary Care Provider [phone] Reason for Referral * Outpatient (Routine) - Authorized Specialty Diagnoses / Procedures Referred By Marva t Referred To Contact Family Medicine Collins Almonte M.D. [address] [place] [address] Phone: tel: fax: [facility] Referral ID Status Reason Start Date Expiration Date V isits Requested Visits Authorized [id number] Authorized 01/23/2025 07/25/2026 1 1 Encounter Details Date Type Department Care Team (Late st Contact Info) Description 01/23/2025 [facility] MNT oCllins Almonte M.D. [address] [place] [address] Social History Tobacco Use Types Packs/Day Years Used Date Smoking Tobacco: Some Days Cigarettes 0.3 0.3 Started: 04/16/2018; Last attempted to quit: 07/31/2018 E-cigarettes Smokeless Tobacco: Never Alcohol Use Standard Drinks/Week Comments Not Currently [...] week 02/02/2023 How often do you attend [facility] or muslim services? 1 to 4 times per year 02/02/2023 Do you belong to any clubs o r organizations such as presybeterian groups, unions, fraternal or athletic groups, or [...] Answer Date Recorded PHQ-2 Score 6 08/09/2023 [facility]at [facility] - Occupational Stress Questionnaire Answer Date Recorded [...] place to sleep or slept in a detention (including now)? Patient refused 02/02/2023 Depression Answer Date Recor ded PHQ-9 Total Score (max 27) 25 08/09 Nutrition Answer Date Recorded On average, how many serving s of fruits and vegetables do you eat per day (serving size is equal to 1 cup or approximately the size of a tennis ball)? 2-3 02/02/2023 Dental Answer Date Recorded Dental: Regular Dentist No 10/14/20 22 Employment Answer Date Recorded Employment status Unemployed/not in th e paid workforce and NOT seeking employment 02/02/2023 Education Answer Date Recorded What is the highest level of school you have completed or the highest degree you have received? 12th grade 07/04/2019 Comments No Sex and Gender Information Value Date Recorded Sex Assigned at Female 09/13/2018 4:41 PM REHAB TECHNICIAN Legal Sex Female 9:33 PM REHAB TECHNICIAN Gender Identity Female 09/13/2018 4:41 PM REHAB TECHNICIAN Sexual Orientation Straight 09/13/2018 4: 41 PM REHAB TECHNICIAN documented as of this encounter Plan of Treatment Scheduled Referrals Name Type Priority Associated Diagnoses Orde r Schedule Family Medicine office visit (clinic) Outpatient Referral Routine Expected: 02/06/2025, Expires: 07/12/2025 documented as of this encounter Visit Diagnoses Not on filedocumented in this encounter Additional Health Concerns Assessment Noted Time PHQ-9 Depression Total Score: 25 023 5:58 AM CDT documented as of this encounter Care Teams Cafeteria Food Server Relationship Specialty Start Date End Date Collins Almonte M.D. [address] [facility] [place] [address] PCP - General 08/16/24 documented as of this encounter
[2025-03-06 20:35] VITALS: BP 109/82; PULSE 81; RESP 18; TEMP 37; O2SAT 99; BMI 25.0
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
== END 2025-03-06 21:04 | disposition other institution (70) ==
PROVIDERS: Emergency Provider Emergency Medicine
DX: T71.193A Asphyxiation due to mechanical threat to breathing due to other causes, assault, initial encounter (principal); S40.021A Contusion of right upper arm, initial encounter; J02.9 Acute pharyngitis, unspecified; R49.0 Dysphonia; Z63.0 Problems in relationship with spouse or partner
CPT/HCPCS: 99284; 99285

== ENCOUNTER 2025-03-06 20:59 | Outpatient (CLI) | payer BC, SELFPAY | END 2025-03-06 21:00 | disposition home or self-care (01) | PROVIDERS: Visit Provider Emergency Medicine | DX: T71.193A Asphyxiation due to mechanical threat to breathing due to other causes, assault, initial encounter (principal); R13.10 Dysphagia, unspecified | CPT/HCPCS: A0425; A0429 ==

== ENCOUNTER 2025-05-22 14:30 | Outpatient (CLI) | payer BC, SELFPAY ==
[2025-05-22 22:18] LABS: Bacterial Vaginosis* Negative (Negative); Candida glab/krus DETECTED (No Detected)
[2025-05-22 22:49] LABS: Chlamydia DNA Amplified* NOT DETECTED (No Detected)
[2025-05-22 22:58] LABS: GC DNA Amplified* DETECTED (No Detected)
[2025-05-25 00:07] LABS: HPV Source Cervix
[2025-05-25 19:42] LABS: HPV Genotype 16 by TMA Not Detected; HPV Genotype 18/45 by TMA Not Detected
[2025-05-28 11:43] LABS: Pap Test Digital Imaging Done
== END 2025-05-22 14:31 | disposition home or self-care (01) ==
PROVIDERS: Visit Provider Registered Nurse
DX: B37.9 Candidiasis, unspecified (principal); Z12.4 Encounter for screening for malignant neoplasm of cervix; Z11.51 Encounter for screening for human papillomavirus (HPV)
CPT/HCPCS: 81513; 87481; 87491; 87591; 87624; 87625; 87661; 88141; 88142; 88175